=== PATIENT | female | born 1965 | race Caucasian/White ===

== ENCOUNTER 2016-05-06 00:56 | Emergency (ER) | payer OTHER ==
[~2016-05-06] VITALS: Ht 170.2 cm; Wt 63.5 kg
[~2016-05-06 00:56] MED LIST: BYSTOLIC10 MG PO; BYSTOLIC2.5 M1 PO; CLONAZEPAM0.5 MG PO; NOR-QD0.35 MG PO
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
[2016-05-06 01:46] LABS: ABSOLUTE BASOPHIL COUNT 0 /CUMM (0.0-0.2); ABSOLUTE EOSINOPHIL COUNT 0 /CUMM (0.0-0.7); ABSOLUTE MONOCYTE COUNT 0.3 /CUMM (0.10-0.60); BASOPHIL % 0.6 % (0.0-2.0); EOSINOPHIL % 0.7 % (0-5); GRANULOCYTE % 46.7 % (42.2-75.2); HEMATOCRIT 40.3 % (37-47); MEAN CORPUSCULAR HGB 35.2 PG (27.0-31.0); MEAN CORPUSCULAR HGB CONC 34.2 G/DL (33.0-37.0); MEAN CORPUSCULAR VOLUME 102.9 FL (81.0-99.0); MEAN PLATELET VOLUME 7.2 FL (7.4-10.4); PLATELET COUNT 207 /CUMM (130-400); RBC DISTRIBUTION WIDTH 13.6 % (11.5-14.5); RED BLOOD CELL CT 3.91 /CUMM (4.20-5.40); WHITE BLOOD CELL COUNT 4.4 /CUMM (4.8-10.8)
--- NOTE | 2016-05-06 02:29 | CT SCAN REPORT ---
EXAMINATION: CT HEAD AND CERVICAL SPINE. CLINICAL INFORMATION: Forehead laceration. COMPARISON: No relevant prior imaging. TECHNIQUE: Supervisor [employer]acing images were obtained. A CT acquisition of the head and cervical spine was performed without intravenous administration contrast. Data was reformatted into multiplanar images at the acquisition workstation. DLP: 1201.41 mGy-cm. FINDINGS: Head: There is no acute intracranial hemorrhage or abnormal extra-axial collection. No intracranial mass effect or midline shift. Lateral and third ventricles are normal. No hydrocephalus. [place]-white matter differentiation is preserved and there is no evidence of acute territorial infarct. There is mild focal swelling of the left frontal scalp. The underlying calvarium is intact. There is no acute skull base fracture. Mastoid air cells and middle ear cavities are well aerated. Visualized paranasal sinuses are well aerated. 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 There is slight anterolisthesis of C4 on C5 and C5 on C6 related to advanced facet degenerative changes at these 2 levels. Vertebral alignment is otherwise maintained. Vertebral body heights are preserved. No acute fracture. No abnormal prevertebral soft tissue swelling. There is grossly no evidence of bony canal compromise. Mild bilateral neuroforaminal encroachment related to uncovertebral joint hypertrophy and facet degenerative change at the level of C4-C5 and C5-C6. Visualized lung apices are clear. Soft tissues of the neck including the thyroid gland are unremarkable. IMPRESSION: Head: There is mild swelling of the left frontal scalp. The underlying calvarium is intact. No acute intracranial hemorrhage. Cervical spine: No acute cervical spine fracture. 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 Degenerative spondylosis at C4-C5 and C5-C6.
[2016-05-06 06:35] VITALS: BP 130/80
== END 2016-05-06 06:36 ==
LOC: ERH 00:56
PROVIDERS: Emergency Medicine
DX: S01.81XA Laceration without foreign body of other part of head, initial encounter (principal); S16.1XXA Strain of muscle, fascia and tendon at neck level, initial encounter; S09.90XA Unspecified injury of head, initial encounter; F10.129 Alcohol abuse with intoxication, unspecified; M47.812 Spondylosis without myelopathy or radiculopathy, cervical region; W19.XXXA Unspecified fall, initial encounter; Y92.89 Other specified places as the place of occurrence of the external cause
CPT/HCPCS: 80307; G0480